=== PATIENT | male | born 1975 | race Caucasian/White ===

== ENCOUNTER 2023-04-09 15:20 | Emergency (ER) | payer OTHER, SELFPAY ==
[2023-04-09 15:34] VITALS: BP 157/102; PULSE 98; RESP 16; TEMP 36.8; O2SAT 98; BMI 26.0
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
== END 2023-04-09 17:01 | disposition home or self-care (01) ==
PROVIDERS: Emergency Provider Emergency Medicine Emergency Medical Services
DX: S13.9XXA Sprain of joints and ligaments of unspecified parts of neck, initial encounter (principal); V43.53XA Car driver injured in collision with pick-up truck in traffic accident, initial encounter
CPT/HCPCS: 72125; 99284